=== PATIENT | male | born 1950 | race Two or more races ===

== ENCOUNTER → 2025-01-27 08:56 | Outpatient (REF) | payer OTHER, SELFPAY | LOC: SDSPAT 08:56 | PROVIDERS: ATTENDING PHYSICIAN Surgery; FAMILY PHYSICIAN Internal Medicine | DX: K42.9 Umbilical hernia without obstruction or gangrene (principal) | CPT/HCPCS: 36415; 93005 ==

== ENCOUNTER 2025-02-07 06:18 | Day surgery (SDC) | payer OTHER, SELFPAY ==
[2025-01-27 13:21] VITALS: BMI 23.9
[2025-02-07] VITALS (12 sets, daily range): BP systolic 129–146; BP diastolic 61–79; BMI 23.9
[2025-02-07 08:47] LABS: Glucose - Point of Care 186 mg/dl (70-99)
[2025-02-07] MEDS: NORMOSOL-R/PLASMALYTE-A 1000 IV (09:03)
[2025-02-07] MEDS: TYLENOL 1000 MG PO (09:06)
[2025-02-07] MEDS: HEPARIN 5000 UNITS SC (09:07)
--- NOTE | 2025-02-07 11:07 | OR.RPT ---
Operative Report
Operative Report
Primary Surgeon: Meliton
Assisting: Jim REYES
Pre-op Diagnosis: Incarcerated umbilical hernia
Post-op Diagnosis: Same
Procedure Performed: Robot assisted laparoscopic repair incarcerated umbilical hernia (rTAPP)
Anesthesia Type: GETA + TAP block
Specimen / Cultures: None
Estimated Blood Loss: 5cc
Complications: None immediate
Operative Findings: 1.5 cm defect containing fat, 11cm x 11cm bard soft mesh
Date of surgery: 02/07/25
Indications:� This 74M developed a symptomatic incarcerated umbilical hernia. Robot assisted laparoscopic repair was planned.
Description of procedure:� The patient was taken to the operating room and positioned into supine position. The patient�s abdomen was prepped and draped in standard sterile fashion. A time-out was completed verifying correct patient, procedure,
site, positioning, and implants and special equipment prior to beginning this procedure.� A stab incision was made in the left upper quadrant, a Veress needle was inserted and proper position was confirmed by aspiration and saline drop test.
Following this, pneumoperitoneum was created with insufflation of carbon dioxide to 12 mmHg. Then a 8mm robotic trocar was inserted at the left anterior axillary line at the level of the umbilicus. The laparoscope was inserted and no injuries were
identified in the area. Under direct visualization, the initial trocar was exposed and two 8mm trocars were placed a hand's breadth above and below the initial trocar under direct visualization.
Attention was turned to the defect. The peritoneum was incised several cm superior to the defect and a peritoneal flap was developed in transverse and caudad directions using blunt and sharp dissection and judicious electrocautery. The defects
measured as above. The defect was closed with 0 PDS stratafix suture. Mesh was passed into the abdomen and centered on the defect and then placed against the underside of the abdominal wall and secured in place with 2-0 vicryl sutures at all four
corners as well as under the defect. The flap broke down in the left upper quadrant and the falciform ligament was mobilized and used to augment the flap. The falciform and peritoneal flap were closed over the mesh and secured with 2-0 monocryl
stratafix suture. A 14g angiocath was used to decompress the preperitoneal space. The flap sealed and suctioned nicely up to the abdominal wall. The mesh did not fold nor curl. A transversus abdominis plane block was then performed under
laparoscopic vision with marcaine/decadron.
After ensuring adequate hemostasis, the trocars were removed and the pneumoperitoneum allowed to escape. The trocar incisions were closed at the skin level using 4-0 monocryl and topical skin adhesive. All counts were correct. The patient tolerated
the procedure well and was taken to the postanesthesia care unit in stable condition.
[2025-02-07] MEDS: DILAUDID 0.25 MG IV (11:33)
[2025-02-07 11:51] LABS: Glucose - Point of Care 263 mg/dl (70-99)
[2025-02-07] MEDS: NOVOLOG vial 4 UNITS SC (11:55)
== END 2025-02-07 13:40 | disposition home or self-care (01) ==
LOC: SDS 06:18
PROVIDERS: ATTENDING PHYSICIAN Surgery; FAMILY PHYSICIAN Internal Medicine
DX: K42.0 Umbilical hernia with obstruction, without gangrene (principal)
CPT/HCPCS: 49592; 82962; C1781

== ENCOUNTER 2025-02-15 11:52 | Emergency (ER) | payer OTHER, SELFPAY ==
[2025-02-15 11:57] VITALS: BP 159/70
--- NOTE | 2025-02-15 12:54 | ED.GENMED ---
History of Present Illness
General
Chief Complaint: Skin Problem
Source: patient and family (Son at bedside assisting with translation)
Exam Limitations: none
Time Seen by Provider: 02/15/25 12:50
Nursing documentation reviewed up to this point in time: agreed with
History of Present Illness
History of Present Illness:
TIME OF INITIAL EVALUATION
-1:15PM
REVIEW OF OLD RECORDS
- Operative report from 02/07/2025�robotic assisted laparoscopic repair of an incarcerated umbilical hernia with Dr. Coelho without immediate complications
CHIEF COMPLAINT(S)
Rash at surgical site.
HISTORY OF PRESENT ILLNESS
The patient is a 74-year-old male who presents with a rash at the location of his recent surgery. He underwent surgery on Monday, a laparoscopic repair of an incarcerated umbilical hernia, and the rash began two days postoperatively, noted on
Monday. The rash started at the adhesive sites from likely EKG leads and has since spread. He reports mild itch and generalized discomfort of his abdomen. He denies any fever, chills, shortness of breath/difficulty breathing. He has no swelling
of mouth or itchiness in throat. He is urinating without difficulty and having regular bowel movements.
Patient states that he has been taking Benadryl over the past 2 days after discussion with general surgery office however redness appears to be spreading. He is concern about infection of port sites though no drainage has been observed.
Patient has no known history of allergic reactions.
ADDITIONAL HISTORY OBTAINED FROM SOURCES OTHER THAN THE PATIENT
Majority of history obtained by son who was assisting with translation as patient is not Monegasque speaking
SOCIAL HISTORY
The patient lives with family members.
- Vitals: Vital signs stable. Afebrile
- General: Well appearing in no distress
- HEENT: Moist oral mucosa, no evidence of pharyngeal edema, uvular edema, tongue swelling; no stridor
- Cardiovascular: No murmurs, normal heart rate, regular rhythm, No chest wall tenderness
- Pulmonary: No respiratory distress, breath sounds are clear and equal. No wheezing
- Abdomen: Soft with no peritoneal signs. Incision sites appear clean, dry, intact without any surrounding evidence of infection or drainage. Erythematous rash of abdomen extending from xiphoid process down to groin
- Neurologic: Excellent strength all extremities, no coordination deficits
- Psychiatric: Appropriate mental status, normal insight and judgement
- Extremities: Nontender, no edema, moves all extremities equally
- Skin: No rash, no lesions
PLAN
- Possible allergic reaction considered rather than infection.
- Check basic laboratory work to rule out any underlying issues.
- Will discuss with general surgery
- Continue current diphenhydramine regimen.
DIFFERENTIAL DIAGNOSIS
The Differential Diagnosis includes, in no particular order and is not limited to:
- Contact dermatitis.
- Surgical site infection.
- Dermatitis due to adhesive or antiseptic.
- Allergic reaction to dermabond.
- Cellulitis.
- Drug reaction.
- Latex allergy.
- Psoriasis exacerbation.
- Skin irritation from antiseptic.
- Erythema multiforme.
LABS
- Labs reviewed. No leukocytosis. Hemoglobin stable. Chemistry reveals hyperglycemia
Disposition:
SUMMARY OF ENCOUNTER
The patient is a 74-year-old male presenting with a rash at the surgical site, suspected to be an allergic reaction rather than an infection. There is low suspicion for infection despite inflammation and redness.
DISPOSITION
The patient is to continue outpatient management given the low risk of infection.
EMERGENCY TREATMENTS ADMINISTERED
Administered a dose of prednisone in the emergency department. The patient will continue with diphenhydramine (Benadryl) for symptom management.
MEDICATION RECONCILIATION
The patient received prednisone in the emergency department and was prescribed a 5-day course of prednisone, 20 mg once daily, considering his diabetes to minimize the impact on blood sugar levels. Continued use of diphenhydramine (Benadryl) is
advised.
MEDICAL DECISION MAKING
1. Number & Complexity of Problems: There is concern for an allergic reaction at the surgical site, and the patient has diabetes, which complicates treatment due to potential impacts on blood sugar levels.
2. Data Reviewed: Consultation with the surgeon confirmed a suspected allergic reaction related to surgical skin preparation (likely chlorhexidine). General surgery JINRIKISHA DRIVER did come down and remove Dermabond from incision sites with concern that this
may be contributing to continuous rash
3. Risk: Consideration of higher-dose steroids was made but tempered by the patients diabetes and potential blood sugar elevation risks. The decision to proceed with a lower dose was based on balancing these considerations.
Review of Systems
Review of Systems
Allergies reviewed?: Yes
All Other Systems: ROS reviewed and negative except as documented in HPI and ROS
Phy Exam
Physical Exam
Physical Exam:
See HPI
Course
Orders/Labs/Results
Orders:
Orders
02/15/25 13:44
Complete Blood Count/With Diff Urgent
Comprehensive Metabolic Panel Urgent
02/15/25 15:26
Prednisone [Deltasone] 20 mg PO NOW STA
Abnormal Lab Results
02/15/25
13:44
RBC 4.16 L 10^6/uL
(4.70-6.10)
Hgb 11.9 L g/dL
(13.0-18.0)
Hct 35.0 L %
(39.0-52.0)
RDW 14.6 H %
(11.5-14.5)
MPV 10.8 H fL
(7.4-10.4)
Absolute Monos (auto) 1.0 H 10^3/uL
(0.1-0.6)
Monocytes % 11.0 H %
(1.7-9.3)
Eosinophils % 7.0 H %
(0-6)
BUN 22 H mg/dl
(9-20)
Glucose 238 H mg/dl
(70-99)
AST 14 L U/L
(17-59)
Total Protein 6.2 L g/dl
(6.3-8.2)
02/15/25 13:44
02/15/25 13:44
Vital Signs
Initial and Last Documented VS:
Initial Vital Signs
Temp Pulse Resp BP Pulse Ox
98 F 74 16 159/70 99
02/15/25 11:57 02/15/25 11:57 02/15/25 11:57 02/15/25 11:57 02/15/25 11:57
Last Documented Vital Signs
Temp Pulse Resp BP Pulse Ox
98 F 74 16 159/70 99
02/15/25 11:57 02/15/25 11:57 02/15/25 11:57 02/15/25 11:57 02/15/25 12:56
*Pulse Oximetry
SaO2: 99
Oxygen Mode of Delivery: Room air
Patient hypoxic: no
*EKG
Interpreted by ED Provider?: NA
*Quality Engineer Medical Device Interpretation
Rate: Quality Engineer Medical Device- N/A
*Critical Care Note
Total Time (30-74mins, 75-104mins- exclusive of procedures): Not Applicable
Patient Management
Discussion with other providers: Metal Drill Press Operator (Case discussed with general surgery)
ED Attending Note
-
Portions of this chart may have been created with voice recognition software.� Occasional wrong word or��sound alike� substitutions may have occurred due to the inherent limitations of voice recognition software.
Discharge Plan
Departure
Patient Disposition: Home (Routine Discharge)
Date of Disposition: 02/15/25
Time of Disposition: 15:42
Patient with high blood pressure during this ER visit?: Yes
Condition: Good
Discharge Problem:
Rash
Instructions: Skin Rash (DC), BLOOD PRESSURE
Prescriptions:
New
prednisone 20 mg tablet
20 mg PO DAILY Qty: 4 0RF
No Action
atorvastatin 40 mg Tablet
40 mg PO DAILY
enalapril maleate 10 mg Tablet
10 mg PO DAILY
glipizide 10 mg Tablet
10 mg PO DAILY
amlodipine 5 mg Tablet
5 mg PO DAILY
ferrous sulfate 325 mg (65 mg iron) Tablet
325 mg PO DAILY
metformin 1,000 mg Tablet
1,000 mg PO DAILY
metoprolol succinate 25 mg Tablet Extended Release 24 Hr
25 mg PO DAILY
omeprazole 20 mg Tablet,Delayed Release (Dr/Ec)
20 mg PO DAILY
pioglitazone 30 mg Tablet
30 mg PO DAILY
tramadol 50 mg tablet
50 - 100 mg PO Q6H PRN (Reason: Pain) Qty: 30 0RF
Referrals:
Julio Coelho MD [Active, Surgical] - Follow up in 2-3 days
Giovani Stoddard MD [Family Provider, Internal Medicine]
Activity Restrictions/Additional Instructions:
RETURN TO THE EMERGENCY DEPARTMENT WITH ANY FEVERS, CHILLS, WORSENING IN RASH, SHORTNESS OF BREATH/DIFFICULTY BREATHING, SEVERE ABDOMINAL PAIN, DIFFICULTY URINATING, WORSENING IN CURRENT SYMPTOMS, OR ANY OTHER CONCERNS
- As discussed�we suspect your rash is likely secondary to a reaction from either the adhesive or the skin prep prior to surgery.
- Continue to take Benadryl as needed for itch. A prescription for steroids been sent to your pharmacy which you should start tomorrow. You were given your first dose in the emergency department today. This will cause an elevation in blood
sugars�please monitor carefully at home.
- Continue to keep skin clean and dry. Wash gently with soap and water. Monitor closely for signs of infection
- Follow-up with Dr. Coelho on Monday for further evaluation/management and to ensure that symptoms are improving
Monitor your symptoms closely and return to the emergency department with any acute worsening/new symptoms or any other concerns
Interventions
Interventions:
*Risk Screen - Suicide Last Done: 02/15/25 11:57
*Neglect/Abuse Screening Last Done: 02/15/25 11:57
*Nursing Disposition Last Done: 02/15/25 15:56
Discharge Date and Time
Discharge Date/Time: 02/15/25 15:56
Print Language: Fernando
[2025-02-15 13:50] LABS: % Basophils 0.2 % (0-2); % Immature Granulocytes 0.2 % (0-0.5); % Lymphocytes 24.2 % (20.5-51.1); % Neutrophils 57.4 % (42.2-75.2); Absolute Eosinophils 0.6 10^3/uL (0-0.7); Absolute Lymphocytes 2.1 10^3/uL (1.2-3.4); Hemoglobin 11.9 g/dL (13.0-18.0); Mean Corpuscular Hgb 28.6 pg (27.0-31.0); Mean Corpuscular Volume 84.1 fL (80.0-94.0); Mean Platelet Volume 10.8 fL (7.4-10.4); Nucleated Red Blood Cells % 0 % (-); Platelet Count 209 10^3/uL (130-400); Red Blood Cell Count 4.16 10^6/uL (4.70-6.10); Red Cell Dist. Width 14.6 % (11.5-14.5); White Blood Cell Count 8.6 10^3/uL (4.8-10.8)
[2025-02-15 14:11] LABS: ALT (SGPT) 13 U/L (0-50); AST (SGOT) 14 U/L (17-59); Albumin 3.7 g/dl (3.5-5.0); Alkaline Phosphatase 51 U/L (38-126); Blood Urea Nitrogen 22 mg/dl (9-20); Carbon Dioxide 23 mmol/L (22-30); Chloride 106 mmol/L (98-107); Glucose 238 mg/dl (70-99); Potassium 4.9 mmol/L (3.5-5.1); Sodium 137 mmol/L (135-145); Total Bilirubin 0.4 mg/dl (0.2-1.3); Total Protein 6.2 g/dl (6.3-8.2); eGFR > 60.00
--- NOTE | 2025-02-15 15:11 | CON.GS ---
Consultation
-
Date/Time Consultation Performed: 02/15/25 1430
Requesting Provider: Julia
Reason for Consultation: rash post op
Medical History
-
Chief Complaint: itching to abdomen
History of Present Illness:
Mr Hawk is a 74 yo male with a h/o DM who underwent robotic assisted repair of an incarcerated umbilical hernia on 02/07/[address] Coelho. He was initially recovering well, but on POD #4, he developed an abdominal rash with itching which has
persisted since that time. On exam, there is a pruritic rash which extends from the lower chest down to below below the waist to the front and left side of his abdomen. Incisions are healing well with some residual edema and discoloration to the
skin of the umbilicus. Discolored markings with local skin irritation also noted where telemetry leads were placed intraoperatively. He denies GI symptoms. He has experienced some soreness with movement as expected with surgery but no abdominal
distention, rigidity or limitations in movement. He has been showering as usual and he has been taking Benadryl at home without much benefit. He denies new medications including antibiotics.
Past Medical History
Past Medical History: HTN, Hypercholesterolemia and NIDDM
Past Surgical History: Hernia Repair (RAL incarcerated umbilical hernia repair with mesh 02/07/25) and Orthopedic (BL TKR)
Social History
Tobacco: Former Smoker
Alcohol: None
Living: With Family
Family History
Family History: Reviewed & Not Pertinent
Allergies / Home Medications
Allergy/AdvReac Type Severity Reaction Status Date / Time
chlorhexidine (From Allergy Mild Rash Verified 02/15/25 15:10
ChloraPrep Clear)
adhesive AdvReac Rash Verified 02/15/25 15:11
�Medication �Instructions �Recorded �Confirmed �Type
amlodipine 5 mg tablet 5 mg PO DAILY 01/31/25 02/07/25 History
atorvastatin 40 mg tablet 40 mg PO DAILY 01/31/25 02/07/25 History
enalapril maleate 10 mg tablet 10 mg PO DAILY 01/31/25 02/07/25 History
ferrous sulfate 325 mg (65 mg 325 mg PO DAILY 01/31/25 02/07/25 History
iron) tablet
glipizide 10 mg tablet 10 mg PO DAILY 01/31/25 02/07/25 History
metformin 1,000 mg tablet 1,000 mg PO DAILY 01/31/25 02/07/25 History
metoprolol succinate 25 mg 25 mg PO DAILY 01/31/25 02/07/25 History
tablet,extended release 24 hr
omeprazole 20 mg tablet,delayed 20 mg PO DAILY 01/31/25 02/07/25 History
release
pioglitazone 30 mg tablet 30 mg PO DAILY 02/07/25 02/07/25 History
tramadol 50 mg tablet 50 - 100 mg (1 - 2 x 50 mg) PO Q6H 02/07/25 Rx
PRN Pain #30 tabs
Review of Systems
-
History Source: Patient and Family
All other systems: Negative unless noted
A 10 point review of systems was completed, and was negative except as per HPI.
Physical Exam
Vital Signs
Temp Pulse Resp BP Pulse Ox
98 F 74 16 159/70 99
02/15/25 11:57 02/15/25 11:57 02/15/25 11:57 02/15/25 11:57 02/15/25 12:56
Lab Results
02/15/25 13:44
02/15/25 13:44
WBC 8.6 10^3/uL (4.8-10.8) 02/15/25 13:44
Hgb 11.9 g/dL (13.0-18.0) L 02/15/25 13:44
Hct 35.0 % (39.0-52.0) L 02/15/25 13:44
Plt Count 209 10^3/uL (130-400) 02/15/25 13:44
Abs Immat Gran (auto) 0.0 10^3/uL (0-0.05) 02/15/25 13:44
Neutrophils % 57.4 % (42.2-75.2) 02/15/25 13:44
Physical Exam
General: Well Developed and Well Nourished
HEENT: Moist Mucous Membranes
Respiratory: Non Labored Respirations
GI: Soft, Non Tender, Non Distended and Other (residual edema/skin discoloration to umbilicus)
Skin: Warm and Rash (pruritic rash to abdomen just above xiphoid to the groin extending around to the back. Incisions healing well, adhesive dressing in place. )
Neuro: Awake, Alert and AO x 3
Psych: Calm
Assessment / Plan
-
74 yo male who is POD #8 RAL UHR presenting with pruritic rash which began on POD #4 and has not responded to PO Benadryl at home. AFVSS. No leukocytosis. Hyperglycemia present. Given the pattern of his rash, suspect secondary to preop skin prep vs
adhesives
Plan:
Dermabond dressings removed from incisions and skin gently cleansed
Patient to follow closely as an outpatient
D/W ED attending, plan to send home on short course of steroid in addition to Benadryl
[2025-02-15] MEDS: DELTASONE 20 MG PO (15:43)
== END 2025-02-15 15:56 | disposition home or self-care (01) ==
LOC: EMR 11:52
PROVIDERS: Physician Assistant; EMERGENCY PHYSICIAN Emergency Medicine; FAMILY PHYSICIAN Internal Medicine
DX: L29.9 Pruritus, unspecified (principal); I10 Essential (primary) hypertension; E11.65 Type 2 diabetes mellitus with hyperglycemia; Z87.891 Personal history of nicotine dependence
CPT/HCPCS: 99283; 80053; 85025

== ENCOUNTER → 2025-06-20 13:22 | Outpatient (REF) | payer OTHER, SELFPAY | LOC: HWRAD 13:22 | PROVIDERS: ATTENDING PHYSICIAN Physician Assistant; FAMILY PHYSICIAN Internal Medicine | DX: H90.8 Mixed conductive and sensorineural hearing loss, unspecified (principal) | CPT/HCPCS: 70480 ==